=== PATIENT | female | born 1990 | race Caucasian/White ===

== ENCOUNTER 2018-10-21 20:09 | Inpatient (IN) | payer OTHER ==
[2018-10-21] MEDS ORDERED: Sodium Chloride 0.9% 10 ML Syringe FLUSH PRN (20:15)
[2018-10-21] MEDS ORDERED: Sodium Chloride 0.9% 10 ML SDV IV PRN (20:15)
[2018-10-21] MEDS ORDERED: Nalbuphine 10 MG/1 ML Vial IVPUSH PRN (20:15)
[2018-10-21] MEDS ORDERED: Oxytocin/0.9 % Sodium Chloride 30 UNIT/500 ML BAG IV SCH ×2 (20:15)
[2018-10-21] MEDS ORDERED: Butorphanol 1 MG/ML SDV IVPUSH PRN (20:15)
[2018-10-21] MEDS ORDERED: Carboprost Tromethamine 250 MCG/1 ML Amp IM PRN (20:15)
[2018-10-21] MEDS ORDERED: Misoprostol 25 MCG (1/4 of 100 MCG) Tab VAG PRN ×2 (20:15)
[2018-10-21] MEDS ORDERED: Lidocaine 1% 50 ML MDV INJECT PRN (20:15)
[2018-10-21] MEDS ORDERED: Terbutaline 1 MG/ML SDV SUBCUT PRN (20:15)
[2018-10-21] MEDS ORDERED: Water For Irrigation,Sterile 1,000 ML Container IRR PRN (20:15)
[2018-10-21] MEDS ORDERED: Methylergonovine 0.2 MG/1 ML Amp IM PRN (20:15)
[2018-10-21] MEDS ORDERED: Sodium Chloride 0.9% 2.5 ML Syringe FLUSH PRN (20:15)
[2018-10-21] MEDS ORDERED: Tranexamic Acid 1,000 MG in Sodium Chloride 0.9% 100 ML IV PRN (20:15)
[2018-10-21] MEDS ORDERED: Misoprostol 200 MCG Tab PO PRN (20:15)
[2018-10-22] MEDS: Lactated Ringers 1,000 ML IV SCH ×4 (08:25→18:40)
[2018-10-22] MEDS ORDERED: fentaNYL 100 MCG/2 ML SDV ONE (08:39)
[2018-10-22] MEDS ORDERED: Ropivacaine 0.2% 2 MG/ML 20 ML SDV ONE (08:41)
--- NOTE | 2018-10-22 09:09 | PCM.PREANE ---
Preanesthetic Assessment - Anesthesia/Transfusion/Family Hx Anesthesia History: Prior Anesthesia Without Reaction Family History of Anesthesia Reaction: No - Review of Systems General: No Symptoms Pulmonary: No Symptoms Cardiovascular: No Symptoms Gastrointestinal: Abdominal Pain Neurological: No Symptoms Other: Reports: None - Physical Assessment NPO Status Date: 10/21/18 Height: 5 ft 5 in Weight: 88.451 kg ASA Class: 2 Mental Status: Alert & Oriented x3 Airway Class: Mallampati = 2 Dentition: Reports: Normal Dentition Lungs: Clear to Auscultation, Normal Respiratory Effort Cardiovascular: Regular Rate, Regular Rhythm - Lab Values: Laboratory Last Values WBC 11.58 K/uL (4.0-11.0) H 10/21/18 20:38 RBC 4.68 M/uL (4.30-5.90) 10/21/18 20:38 Hgb 13.5 g/dL (12.0-16.0) 10/21/18 20:38 Hct 40.3 % (36.0-46.0) 10/21/18 20:38 MCV 86.1 fL (80.0-98.0) 10/21/18 20:38 MCH 28.8 pg (27.0-32.0) 10/21/18 20:38 MCHC 33.5 g/dL (31.0-37.0) 10/21/18 20:38 RDW Std Deviation 40.9 fl (28.0-62.0) 10/21/18 20:38 RDW Coeff of Travis 13 % (11.0-15.0) 10/21/18 20:38 Plt Count 192 K/uL (150-400) 10/21/18 20:38 MPV 9.00 fL (7.40-12.00) 10/21/18 20:38 Nucleated RBC % 0.0 /100WBC 10/21/18 20:38 Nucleated RBCs # 0 K/uL 10/21/18 20:38 Blood Type O POSITIVE 10/21/18 20:38 Antibody Screen NEGATIVE 10/21/18 20:38 - Allergies Allergies/Adverse Reactions: Allergies Allergy/AdvReac Type Severity Reaction Status Date / Time No Known Allergies Allergy Verified 10/21/18 20:19 - Blood Blood Available: Yes - Anesthesia Plan Pre-Op Medication Ordered: None - Acknowledgements Anesthesia Type Planned: Epidural Pt an Appropriate Candidate for the Planned Anesthesia: Yes Alternatives and Risks of Anesthesia Discussed w Pt/Guardian: Yes Pt/Guardian Understands and Agrees with Anesthesia Plan: Yes PreAnesthesia Questionnaire - Past Health History Medical/Surgical History: Denies Medical/Surgical History - SUBSTANCE USE Smoking Status *Q: Never Smoker Recreational Drug Use History: No - HOME MEDS Home Medications: Home Meds Vits #93/Iron Fum/FA [ Formula Tablet] 1 each PO DAILY [History] - CURRENT (IN HOUSE) MEDS Current Meds: Current Medications Butorphanol Tartrate (Stadol) 1 mg IVPUSH Q1H PRN PRN Reason: Pain Carboprost Tromethamine (Hemabate Ds) 250 mcg IM ASDIRECTED PRN PRN Reason: Post Hemorrhage Lactated Ringer's (Ringers, Lactated) 1,000 mls @ 150 mls/hr IV ASDIRECTED ABISAI Last Admin: 10/22/18 08:56 Dose: 999 mls/hr Oxytocin/Sodium Chloride (Oxytocin 30 Unit/500 Ml-Ns) 30 unit in 500 mls @ 999 mls/hr IV TITRATE ABISAI Oxytocin/Sodium Chloride (Oxytocin 30 Unit/500 Ml-Ns) 30 unit in 500 mls @ 2 mls/hr IV TITRATE ABISAI; Protocol Last Titration: 10/22/18 08:29 Dose: 6 munits/min, 6 mls/hr Tranexamic Acid 1,000 mg/ (Sodium Chloride) 110 mls @ 660 mls/hr IV ONETIME PRN PRN Reason: Bleeding Lidocaine HCl (Xylocaine 1%) 50 ml INJECT ONETIME PRN PRN Reason: Laceration repair Methylergonovine Maleate (Methergine) 0.2 mg IM ASDIRECTED PRN PRN Reason: Post Hemorrhage Misoprostol (Cytotec) 200 mcg PO ONETIME PRN PRN Reason: Post Hemorrhage Misoprostol (Cytotec) 25 mcg VAG ONETIME PRN PRN Reason: Cervical Ripening Last Admin: 10/21/18 21:31 Dose: 25 mcg Misoprostol (Cytotec) 25 mcg VAG Q4H PRN PRN Reason: Cervical Ripening Nalbuphine HCl (Nubain) 10 mg IVPUSH Q1H PRN PRN Reason: Pain (severe 7-10) Sodium Chloride (Saline Flush) 10 ml FLUSH ASDIRECTED PRN PRN Reason: Keep Vein Open Sodium Chloride (Saline Flush) 2.5 ml FLUSH ASDIRECTED PRN PRN Reason: Keep Vein Open Sodium Chloride (Normal Saline) 10 ml IV ASDIRECTED PRN PRN Reason: IV Use Sterile Water (Sterile Water For Irrigation) 1,000 ml IRR ASDIRECTED PRN PRN Reason: delivery Terbutaline Sulfate (Brethine) 0.25 mg SUBCUT ASDIRECTED PRN PRN Reason: Tacysystole Discontinued Medications Fentanyl (Sublimaze) Confirm Administered Dose 100 mcg .ROUTE .STK-MED ONE Stop: 10/22/18 08:40 Fentanyl/Bupivacaine HCl (Ogeyuiqb-Ujhyl-Mw 2 Mcg/Ml-0.125%) Confirm Administered Dose 100 mls @ as directed .ROUTE .STK-MED ONE Stop: 10/22/18 08:41 Ropivacaine (Naropin 0.2%) Confirm Administered Dose 20 ml .ROUTE .STK-MED ONE Stop: 10/22/18 08:42
[2018-10-22] MEDS ORDERED: Ondansetron 4 MG/2 ML SDV IVPUSH PRN ×2 (18:51→22:28)
[2018-10-22] MEDS ORDERED: Bupivacaine 0.5% 10 ML SDV ONE (20:41)
[2018-10-22] MEDS ORDERED: Ondansetron 4 MG/2 ML SDV ONE (20:54)
[2018-10-22] MEDS ORDERED: ceFAZolin 1 GM Vial ONE (20:54)
[2018-10-22] MEDS ORDERED: Sodium Chloride 0.9% 20 ML ONE (20:54)
[2018-10-22] MEDS ORDERED: Morphine PF 10 MG/10 ML SDV ONE (21:18)
[2018-10-22] MEDS ORDERED: Acetaminophen/oxyCODONE 325-5 MG Tab PO PRN ×3 (21:19→22:28)
[2018-10-22] MEDS ORDERED: Nalbuphine 10 MG/1 ML Vial IVPUSH PRN (21:19)
[2018-10-22] MEDS ORDERED: fentaNYL 100 MCG/2 ML SDV IVPUSH PRN (21:19)
--- NOTE | 2018-10-22 22:24 | PCM.POSTAN ---
POST ANESTHESIA ASSESSMENT - MENTAL STATUS Mental Status: Alert, Oriented - VITAL SIGNS Vital Signs: Last Vital Signs Temp 99.7 F 10/22/18 22:00 Pulse 107 H 10/22/18 22:20 Resp 22 H 10/22/18 22:20 BP 100/58 L 10/22/18 22:20 Pulse Ox 95 10/22/18 22:20 - RESPIRATORY Respiratory Status: Respiratory Rate WNL, Airway Patent, O2 Saturation Stable - CARDIOVASCULAR CV Status: Pulse Rate WNL, Blood Pressure Stable - GASTROINTESTINAL GI Status: No Symptoms - PAIN Pain Score: 1 - POST OP HYDRATION Hydration Status: Adequate & Stable
[2018-10-22] MEDS ORDERED: Lanolin 100% Cream 7 GM Tube TOP PRN (22:28)
[2018-10-22] MEDS ORDERED: Bisacodyl 10 MG Supp RECTAL PRN (22:28)
[2018-10-22] MEDS ORDERED: diphenhydrAMINE 50 MG/ML SDV IVPUSH PRN (22:28)
[2018-10-22] MEDS ORDERED: Lactated Ringers 1,000 ML IV SCH (22:30)
[2018-10-22] MEDS: Ketorolac 30 MG/ML SDV IVPUSH SCH (22:46)
--- NOTE | 2018-10-23 00:01 | PCM.OPNOTE ---
- General Post-Op/Procedure Note Condition: Good Free Text/Narrative:: Intake & Output 10/22/18 10/22/18 10/23/18 14:59 22:59 06:59 Intake Total 800 Output Total 450 Balance 350
--- NOTE | 2018-10-23 03:05 | OR ---
SURGEON: Da Calzada MD DATE OF PROCEDURE: 10/22/2018 INDICATIONS: A 28-year-old G1, P0 female admitted to Labor and Delivery for induction of labor at 40w6d. She had persistent category 2 heart rate tracing with late and variable decels and arrest of dilation at 5/70/-2. Discussed with the patient that she is unlikely to progress to vaginal delivery, and would be safest for mom and baby. Procedure was discussed with the patient including risks and complications which includes bleeding, infection, DVT, and injuries to surrounding organs such as bowel and bladder. The patient expressed understanding and is agreeable to procedure. Consent signed and questions answered. PROCEDURE PERFORMED: Primary low-transverse section. FINDINGS: Berry intrauterine at 41 weeks and 0 days in cephalic presentation , weight 6cxp6is. 6/7. Normal-appearing uterus, bilateral fallopian tubes and ovaries. PREOPERATIVE DIAGNOSES: 1. Berry intrauterine at 41 weeks and 0 days. 2. Failure to progress in labor. 3. Persistent category 2 heart rate tracing. POSTOPERATIVE DIAGNOSES: 1. Intrauterine at 41 weeks and 0 days. 2. Failure to progress in labor. 3. Persistent category 2 heart rate tracing. ANESTHESIA: Epidural. TABLE INSPECTOR: None. ANESTHESIOLOGIST: Dr. Anthony Vallejo ESTIMATED BLOOD LOSS: 800 mL. URINE OUTPUT: 300 mL PROCEDURE IN DETAIL: The patient was brought to the operating room. She received 2 g Ancef IV and pneumatic stockings. Epidural anesthesia was already in place and topped off. Sterling was already in place. The abdomen was prepped with chlorhexidine in sterile fashion. The patient was draped and tested for anesthesia which was adequate. Pfannenstiel incision was made with a scalpel and dissected down to fascia. Sites of bleeding were noted and cauterized. The fascia was cleared of subcutaneous tissue and incised in the midline with scalpel, then extended with Noel scissors. Hans clamps were placed on the superior fascial edge and rectus muscle dissected bluntly and with Noel scissors. Peritoneum was identified and entered bluntly, then extended bluntly. The Feng retractor was placed in the abdomen. The bladder was noted to be away from the site of incision and placed out of operative field. The uterus was incised using scalpel transversely at the lower uterine segment and extended bluntly. Clear amniotic fluid was noted. 's head was brought atraumatically to the hysterotomy with surgeon hand and fundal pressure applied. However, there was difficulty delivering the head. Decision was made to place the Kiwi vacuum. The vacuum was placed on the flexion point and negative pressure increased to 400-500mmHg. Traction was applied along with fundal pressure and head delivered atraumatically. Vacuum was removed. Shoulder and body were delivered without difficulty. Umbilical cord was clamped and cut. Baby was initially cyanotic and handed to awaiting nursery staff. Baby was crying and moving all extremities with stimulation after about 1min. Cord bloods were obtained. Placenta was delivered with gentle traction on the umbilical cord. Clean lap was used to remove any remaining membranes in the endometrial cavity. Uterus was exteriorized. Hysterotomy was examined and Allis clamps were placed at the angles of incision. The uterine incision was closed in single layer in running nonlocking fashion using 0 Vicryl. Additional qbarzn-ue-ahjbbc were placed at sites of bleeding on left side. The hysterotomy was examined and hemostasis was confirmed. The uterus was firm and placed back into the peritoneal cavity. Paracolic gutters were cleaned of any clots. The incision was again confirmed to be hemostatic. Peritoneum was grasped by Gisselle clamps, then closed with 2-0 Vicryl suture in running fashion. Rectus muscle was examined and found to be hemostatic. Fascia was closed in running fashion using 0 Vicryl suture. Subcutaneous tissue was irrigated and bleeding sites cauterized. Subcutaneous layer was brought together with 3-0 plain in running fashion. The skin was closed in subcuticular fashion using 3-0 Vicryl on a Ernie needle. ABD pressure dressing was placed over the incision. The patient was stable and transferred to recovery room. KRISSY VENCES /[id number] JUSTO
[2018-10-23] MEDS: Ketorolac 30 MG/ML SDV IVPUSH SCH ×4 (04:35→22:42)
[2018-10-23] MEDS: Docusate Sodium 100 MG Cap PO SCH ×2 (10:04→22:43)
--- NOTE | 2018-10-23 12:06 | PCM48HPAN ---
Post Anesthesia Note - EVALUATION WITHIN 48HRS OF ANESTHETIC Vital Signs in Normal Range: Yes Patient Participated in Evaluation: Yes Respiratory Function Stable: Yes Airway Patent: Yes Cardiovascular Function Stable: Yes Hydration Status Stable: Yes Pain Control Satisfactory: Yes Nausea and Vomiting Control Satisfactory: Yes Mental Status Recovered: Yes Vital Signs: Last Vital Signs Temp 97.7 F 10/23/18 07:30 Pulse 91 10/23/18 10:30 Resp 16 10/23/18 10:30 BP 104/59 L 10/23/18 07:30 Pulse Ox 98 10/23/18 10:30
--- NOTE | 2018-10-23 13:02 | PCM.PN ---
- General Info Date of Service: 10/23/18 Functional Status: Reports: Pain Controlled, Tolerating Diet, Ambulating - Review of Systems General: Reports: No Symptoms HEENT: Reports: No Symptoms Pulmonary: Reports: No Symptoms Cardiovascular: Reports: No Symptoms Gastrointestinal: Reports: No Symptoms Genitourinary: Reports: No Symptoms Musculoskeletal: Reports: No Symptoms Skin: Reports: No Symptoms Neurological: Reports: No Symptoms Psychiatric: Reports: No Symptoms - Patient Data Vitals - Most Recent: Last Vital Signs Temp 36.5 C 10/23/18 07:30 Pulse 91 10/23/18 10:30 Resp 16 10/23/18 10:30 BP 104/59 L 10/23/18 07:30 Pulse Ox 98 10/23/18 10:30 Weight - Most Recent: 195 lb I&O - Last 24 Hours: Intake & Output 10/22/18 10/23/18 10/23/18 22:59 06:59 14:59 Intake Total 800 400 Output Total 450 575 Balance 350 -175 Lab Results Last 24 Hours: Laboratory Results - last 24 hr 10/23/18 Range/Units 06:10 Hgb 11.1 L (12.0-16.0) g/dL Hct 33.4 L (36.0-46.0) % Med Orders - Current: Current Medications Bisacodyl (Dulcolax) 10 mg RECTAL ONETIME PRN PRN Reason: Constipation Butorphanol Tartrate (Stadol) 1 mg IVPUSH Q1H PRN PRN Reason: Pain Carboprost Tromethamine (Hemabate Ds) 250 mcg IM ASDIRECTED PRN PRN Reason: Post Hemorrhage Diphenhydramine HCl (Benadryl) 25 mg IVPUSH Q6H PRN PRN Reason: Itching or Nausea Docusate Sodium (Colace) 100 mg PO BID [facility] Last Admin: 10/23/18 10:04 Dose: 100 mg Emollient Ointment (Lansinoh Hpa) 0 gm TOP ASDIRECTED PRN PRN Reason: Sore Nipples Fentanyl (Sublimaze) 50 mcg IVPUSH Q5M PRN PRN Reason: Pain (severe 7-10) Stop: 10/23/18 21:20 Lactated Ringer's (Ringers, Lactated) 1,000 mls @ 150 mls/hr IV ASDIRECTED [facility] Last Admin: 10/22/18 18:40 Dose: 150 mls/hr Oxytocin/Sodium Chloride (Oxytocin 30 Unit/500 Ml-Ns) 30 unit in 500 mls @ 999 mls/hr IV TITRATE ABISAI Oxytocin/Sodium Chloride (Oxytocin 30 Unit/500 Ml-Ns) 30 unit in 500 mls @ 2 mls/hr IV TITRATE ABISAI; Protocol Last Titration: 10/22/18 18:15 Dose: 0 munits/min, 0 mls/hr Tranexamic Acid 1,000 mg/ (Sodium Chloride) 110 mls @ 660 mls/hr IV ONETIME PRN PRN Reason: Bleeding Lactated Ringer's (Ringers, Lactated) 1,000 mls @ 125 mls/hr IV ASDIRECTED [facility] Last Admin: 10/23/18 00:58 Dose: 125 mls/hr Ibuprofen (Motrin) 800 mg PO Q8H PRN PRN Reason: mild pain or fever Ketorolac Tromethamine (Toradol) 30 mg IVPUSH Q6H [facility] Stop: 10/23/18 22:31 Last Admin: 10/23/18 10:05 Dose: 30 mg Lidocaine HCl (Xylocaine 1%) 50 ml INJECT ONETIME PRN PRN Reason: Laceration repair Methylergonovine Maleate (Methergine) 0.2 mg IM ASDIRECTED PRN PRN Reason: Post Hemorrhage Misoprostol (Cytotec) 200 mcg PO ONETIME PRN PRN Reason: Post Hemorrhage Misoprostol (Cytotec) 25 mcg VAG ONETIME PRN PRN Reason: Cervical Ripening Last Admin: 10/21/18 21:31 Dose: 25 mcg Misoprostol (Cytotec) 25 mcg VAG Q4H PRN PRN Reason: Cervical Ripening Nalbuphine HCl (Nubain) 10 mg IVPUSH Q1H PRN PRN Reason: Pain (severe 7-10) Nalbuphine HCl (Nubain) 2.5 mg IVPUSH Q3H PRN PRN Reason: Pruritis Stop: 10/23/18 21:20 Ondansetron HCl (Zofran) 4 mg IVPUSH Q6H PRN PRN Reason: Nausea/Vomiting Last Admin: 10/22/18 19:15 Dose: 4 mg Ondansetron HCl (Zofran) 4 mg IVPUSH Q4H PRN PRN Reason: Nausea/Vomiting Oxycodone/Acetaminophen (Percocet 325-5 Mg) 1 tab PO ONETIME PRN PRN Reason: Pain (moderate 4-6) Oxycodone/Acetaminophen (Percocet 325-5 Mg) 1 tab PO Q4H PRN PRN Reason: Pain (moderate 4-6) Oxycodone/Acetaminophen (Percocet 325-5 Mg) 2 tab PO Q4H PRN PRN Reason: Pain (moderate 4-6) Sodium Chloride (Saline Flush) 10 ml FLUSH ASDIRECTED PRN PRN Reason: Keep Vein Open Sodium Chloride (Saline Flush) 2.5 ml FLUSH ASDIRECTED PRN PRN Reason: Keep Vein Open Sodium Chloride (Normal Saline) 10 ml IV ASDIRECTED PRN PRN Reason: IV Use Sterile Water (Sterile Water For Irrigation) 1,000 ml IRR ASDIRECTED PRN PRN Reason: delivery Terbutaline Sulfate (Brethine) 0.25 mg SUBCUT ASDIRECTED PRN PRN Reason: Tacysystole Discontinued Medications Bupivacaine HCl (Sensorcaine-Mpf 0.5%) Confirm Administered Dose 20 ml .ROUTE .STK-MED ONE Stop: 10/22/18 20:42 Last Admin: 10/22/18 23:07 Dose: Not Given Cefazolin Sodium (Ancef) Confirm Administered Dose 2 gm .ROUTE .STK-MED ONE Stop: 10/22/18 20:55 Fentanyl (Sublimaze) Confirm Administered Dose 100 mcg .ROUTE .STK-MED ONE Stop: 10/22/18 08:40 Last Admin: 10/22/18 23:01 Dose: Not Given Fentanyl/Bupivacaine HCl (Letboemx-Sxgne-Cq 2 Mcg/Ml-0.125%) Confirm Administered Dose 100 mls @ as directed .ROUTE .STK-MED ONE Stop: 10/22/18 08:41 Last Admin: 10/22/18 23:01 Dose: Not Given Fentanyl/Bupivacaine HCl (Ibdsbtdf-Xqkwi-Pj 2 Mcg/Ml-0.125%) Confirm Administered Dose 100 mls @ as directed .ROUTE .STK-MED ONE Stop: 10/22/18 18:45 Last Admin: 10/22/18 23:01 Dose: Not Given Sodium Chloride (Normal Saline) Confirm Administered Dose 20 mls @ as directed .ROUTE .STK-MED ONE Stop: 10/22/18 20:55 Morphine Sulfate (Duramorph Pf) Confirm Administered Dose 10 mg .ROUTE .STK-MED ONE Stop: 10/22/18 21:19 Ondansetron HCl (Zofran) Confirm Administered Dose 4 mg .ROUTE .STK-MED ONE Stop: 10/22/18 20:55 Ropivacaine (Naropin 0.2%) Confirm Administered Dose 20 ml .ROUTE .STK-MED ONE Stop: 10/22/18 08:42 Last Admin: 10/22/18 23:01 Dose: Not Given - Exam General: Alert, Oriented, No Acute Distress Lungs: Normal Respiratory Effort GI/Abdominal Exam: Normal Bowel Sounds, Soft, Non-Tender, No Distention, Other ( Appropriate tender. Dressing removed, incision c/d/i) (Female) Exam: Vaginal Bleeding (light), Other (Fundus firm at the umbilicus. Macdonald in place with clear urine) Extremities: Non-Tender, Pedal Edema (minimal) Neurological: No New Focal Deficit Psy/Mental Status: Alert, Normal Affect, Normal Mood - Problem List Review Problem List Initiated/Reviewed/Updated: Yes - My Orders Last 24 Hours: My Active Orders 10/22/18 21:10 Patient Status [ADT] Routine 10/22/18 22:28 Ambulate [RC] PER UNIT ROUTINE Communication Order [RC] PER UNIT ROUTINE Communication Order [RC] PER UNIT ROUTINE Communication Order [RC] Per Unit Routine Intake and Output [RC] Q4H May Shower [RC] ASDIRECTED RT Incentive Spirometry [RC] Q2HWA Vital Signs [RC] PER UNIT ROUTINE Acetaminophen/oxyCODONE [Percocet 325-5 MG] 1 tab PO Q4H PRN Acetaminophen/oxyCODONE [Percocet 325-5 MG] 2 tab PO Q4H PRN Bisacodyl [Dulcolax] 10 mg RECTAL ONETIME PRN Lanolin [Lansinoh HPA] See Dose Instructions TOP ASDIRECTED PRN Ondansetron [Zofran] 4 mg IVPUSH Q4H PRN diphenhydrAMINE [Benadryl] 25 mg IVPUSH Q6H PRN Abdominal Binder [OM.PC] Routine Assess Lochia [WOMSER] Per Unit Routine Assess Uterine Involution [WOMSER] Per Unit Routine Breast Pump [WOMSER] Per Unit Routine Peripheral IV Discontinue [OM.PC] Routine Sequential Compression Device [OM.PC] Per Unit Routine 10/22/18 22:29 Antiembolic Devices [RC] PER UNIT ROUTINE 10/22/18 22:30 Ketorolac [Toradol] 30 mg IVPUSH Q6H Lactated Ringers [Ringers, Lactated] 1,000 ml IV ASDIRECTED 10/23/18 09:00 Docusate Sodium [Colace] 100 mg PO BID 10/23/18 Breakfast Regular Diet [DIET] 10/24/18 04:30 Ibuprofen [Motrin] 800 mg PO Q8H PRN - Assessment Assessment:: 28yo POD1 s/p LTCS for arrest of dilation and NRFHR, stable and recovering well. - Plan Plan:: Incision healing well. Bleeding light. UO adequate, remove macdonald Continue toradol, oxycodone, motrin PRN for pain Baby on O2, will likely wane off today Continue inpatient, discharge POD2 when meeting all milestones
[2018-10-24] MEDS ORDERED: [UNRECOGNIZED DRUG - OTHER] SUBCUT ONE ×2 (03:28→14:28)
[2018-10-24] MEDS: Ibuprofen 800 MG Tab PO PRN ×2 (04:30→13:05)
--- NOTE | 2018-10-24 06:38 | PCM.PNPP ---
- General Info Date of Service: 10/24/18 Admission Dx/Problem (Free Text): Subjective Update: Pt feeling well. Pain controlled. Ambulating and voiding. Tolerating PO. Has not passed flatus. Lochia minimal. - Review of Systems General: Reports: No Symptoms HEENT: Reports: No Symptoms Pulmonary: Reports: No Symptoms Cardiovascular: Reports: No Symptoms Gastrointestinal: Reports: No Symptoms Genitourinary: Reports: No Symptoms Musculoskeletal: Reports: No Symptoms Neurological: Reports: No Symptoms Psychiatric: Reports: No Symptoms - Patient Data Vital Signs - Most Recent: Last Vital Signs Temp 36.9 C 10/24/18 04:00 Pulse 84 10/24/18 04:00 Resp 16 10/24/18 04:00 BP 113/67 10/24/18 04:00 Pulse Ox 96 10/24/18 04:00 Weight - Most Recent: 195 lb I&O - Last 24 Hours: Intake & Output 10/23/18 10/23/18 10/24/18 14:59 22:59 06:59 Output Total 600 900 Balance -600 -900 Med Orders - Current: Current Medications Bisacodyl (Dulcolax) 10 mg RECTAL ONETIME PRN PRN Reason: Constipation Butorphanol Tartrate (Stadol) 1 mg IVPUSH Q1H PRN PRN Reason: Pain Carboprost Tromethamine (Hemabate Ds) 250 mcg IM ASDIRECTED PRN PRN Reason: Post Hemorrhage Diphenhydramine HCl (Benadryl) 25 mg IVPUSH Q6H PRN PRN Reason: Itching or Nausea Docusate Sodium (Colace) 100 mg PO BID [facility] Last Admin: 10/23/18 22:43 Dose: 100 mg Emollient Ointment (Lansinoh Hpa) 0 gm TOP ASDIRECTED PRN PRN Reason: Sore Nipples Lactated Ringer's (Ringers, Lactated) 1,000 mls @ 150 mls/hr IV ASDIRECTED [facility] Last Admin: 10/22/18 18:40 Dose: 150 mls/hr Oxytocin/Sodium Chloride (Oxytocin 30 Unit/500 Ml-Ns) 30 unit in 500 mls @ 999 mls/hr IV TITRATE ABISAI Oxytocin/Sodium Chloride (Oxytocin 30 Unit/500 Ml-Ns) 30 unit in 500 mls @ 2 mls/hr IV TITRATE ABISAI; Protocol Last Titration: 10/22/18 18:15 Dose: 0 munits/min, 0 mls/hr Tranexamic Acid 1,000 mg/ (Sodium Chloride) 110 mls @ 660 mls/hr IV ONETIME PRN PRN Reason: Bleeding Lactated Ringer's (Ringers, Lactated) 1,000 mls @ 125 mls/hr IV ASDIRECTED [facility] Last Admin: 10/23/18 00:58 Dose: 125 mls/hr Ibuprofen (Motrin) 800 mg PO Q8H PRN PRN Reason: mild pain or fever Last Admin: 10/24/18 04:30 Dose: 800 mg Lidocaine HCl (Xylocaine 1%) 50 ml INJECT ONETIME PRN PRN Reason: Laceration repair Methylergonovine Maleate (Methergine) 0.2 mg IM ASDIRECTED PRN PRN Reason: Post Hemorrhage Misoprostol (Cytotec) 200 mcg PO ONETIME PRN PRN Reason: Post Hemorrhage Misoprostol (Cytotec) 25 mcg VAG ONETIME PRN PRN Reason: Cervical Ripening Last Admin: 10/21/18 21:31 Dose: 25 mcg Misoprostol (Cytotec) 25 mcg VAG Q4H PRN PRN Reason: Cervical Ripening Nalbuphine HCl (Nubain) 10 mg IVPUSH Q1H PRN PRN Reason: Pain (severe 7-10) Ondansetron HCl (Zofran) 4 mg IVPUSH Q6H PRN PRN Reason: Nausea/Vomiting Last Admin: 10/22/18 19:15 Dose: 4 mg Ondansetron HCl (Zofran) 4 mg IVPUSH Q4H PRN PRN Reason: Nausea/Vomiting Oxycodone/Acetaminophen (Percocet 325-5 Mg) 1 tab PO ONETIME PRN PRN Reason: Pain (moderate 4-6) Last Admin: 10/24/18 05:51 Dose: 1 tab Oxycodone/Acetaminophen (Percocet 325-5 Mg) 1 tab PO Q4H PRN PRN Reason: Pain (moderate 4-6) Oxycodone/Acetaminophen (Percocet 325-5 Mg) 2 tab PO Q4H PRN PRN Reason: Pain (moderate 4-6) Sodium Chloride (Saline Flush) 10 ml FLUSH ASDIRECTED PRN PRN Reason: Keep Vein Open Sodium Chloride (Saline Flush) 2.5 ml FLUSH ASDIRECTED PRN PRN Reason: Keep Vein Open Sodium Chloride (Normal Saline) 10 ml IV ASDIRECTED PRN PRN Reason: IV Use Sterile Water (Sterile Water For Irrigation) 1,000 ml IRR ASDIRECTED PRN PRN Reason: delivery Terbutaline Sulfate (Brethine) 0.25 mg SUBCUT ASDIRECTED PRN PRN Reason: Tacysystole Discontinued Medications Bupivacaine HCl (Sensorcaine-Mpf 0.5%) Confirm Administered Dose 20 ml .ROUTE .STK-MED ONE Stop: 10/22/18 20:42 Last Admin: 10/22/18 23:07 Dose: Not Given Cefazolin Sodium (Ancef) Confirm Administered Dose 2 gm .ROUTE .STK-MED ONE Stop: 10/22/18 20:55 Fentanyl (Sublimaze) Confirm Administered Dose 100 mcg .ROUTE .STK-MED ONE Stop: 10/22/18 08:40 Last Admin: 10/22/18 23:01 Dose: Not Given Fentanyl (Sublimaze) 50 mcg IVPUSH Q5M PRN PRN Reason: Pain (severe 7-10) Stop: 10/23/18 21:20 Fentanyl/Bupivacaine HCl (Szdvpzqk-Wctcu-Gf 2 Mcg/Ml-0.125%) Confirm Administered Dose 100 mls @ as directed .ROUTE .STK-MED ONE Stop: 10/22/18 08:41 Last Admin: 10/22/18 23:01 Dose: Not Given Fentanyl/Bupivacaine HCl (Gskkxmmh-Pwgny-Vw 2 Mcg/Ml-0.125%) Confirm Administered Dose 100 mls @ as directed .ROUTE .STK-MED ONE Stop: 10/22/18 18:45 Last Admin: 10/22/18 23:01 Dose: Not Given Sodium Chloride (Normal Saline) Confirm Administered Dose 20 mls @ as directed .ROUTE .STK-MED ONE Stop: 10/22/18 20:55 Ketorolac Tromethamine (Toradol) 30 mg IVPUSH Q6H [facility] Stop: 10/23/18 22:31 Last Admin: 10/23/18 22:42 Dose: 30 mg Measles/Mumps/Rubella Vaccine Live (Proquad Vial) 1 each SUBCUT .ONCE ONE Stop: 10/24/18 03:29 Morphine Sulfate (Duramorph Pf) Confirm Administered Dose 10 mg .ROUTE .STK-MED ONE Stop: 10/22/18 21:19 Nalbuphine HCl (Nubain) 2.5 mg IVPUSH Q3H PRN PRN Reason: Pruritis Stop: 10/23/18 21:20 Ondansetron HCl (Zofran) Confirm Administered Dose 4 mg .ROUTE .STK-MED ONE Stop: 10/22/18 20:55 Ropivacaine (Naropin 0.2%) Confirm Administered Dose 20 ml .ROUTE .STK-MED ONE Stop: 10/22/18 08:42 Last Admin: 10/22/18 23:01 Dose: Not Given - Infant Interaction Infant Disposition, : at Bedside Interaction: Holding Feeding: Breastfed ; Nursed Well Support Person: - Recovery Exam Fundal Tone: Firm Fundal Level: At Umbilicus Fundal Placement: Midline Lochia Amount: Scant Lochia Color: Rubra/Red Bladder Status: Voiding Urinary Elimination: Voided - Exam General: Alert, Oriented, No Acute Distress HEENT: Pupils Equal, Pupils Reactive Lungs: Normal Respiratory Effort GI/Abdominal Exam: Normal Bowel Sounds, Soft, No Distention, Other ( Appropriately tender. Incision c/d/i) Extremities: Normal Inspection, Non-Tender, No Pedal Edema Skin: Warm Psy/Mental Status: Alert, Normal Affect, Normal Mood - Problem List & Annotations (1) delivery delivered SNOMED Code(s): 221412654 Code(s): O82 - ENCOUNTER FOR DELIVERY WITHOUT INDICATION Status: Acute Current Visit: Yes - Problem List Review Problem List Initiated/Reviewed/Updated: Yes - My Orders Last 24 Hours: My Active Orders 10/23/18 09:00 Docusate Sodium [Colace] 100 mg PO BID 10/23/18 Breakfast Regular Diet [DIET] 10/24/18 04:30 Ibuprofen [Motrin] 800 mg PO Q8H PRN - Assessment Assessment:: 28yo POD2 s/p LTCS for arrest of dilation and NRFHR, stable and recovering well. - Plan Plan:: Incision healing well. Bleeding light. Voiding spontaneously Continue toradol, oxycodone, motrin PRN for pain Baby doing well, Plan for discharge home today, follow up in 2wk for incision check
[2018-10-24] MEDS: Docusate Sodium 100 MG Cap PO SCH (09:03)
[2018-10-24] MEDS ORDERED: Measles, Mumps & Rubella Vaccine 0.5 ML SDV SUBCUT ONE (13:45)
== END 2018-10-24 14:38 | disposition home or self-care (01) | DRG 788 ==
LOC: MW.OBCHECK 20:09 → MW.OB 20:10 → OBSVTOIN 10-23 00:30 → MW.OB 10-23 03:57
PROVIDERS: ADMIT Obstetrics & Gynecology; ATTEND Obstetrics & Gynecology
PROC: 10D00Z1 Extraction of Products of Conception, Low, Open Approach (ICD-10-PCS; principal; 2018-10-22)
DX: O48.0 Post-term pregnancy (principal); O76 Abnormality in fetal heart rate and rhythm complicating labor and delivery; O62.0 Primary inadequate contractions; Z37.0 Single live birth; Z3A.40 40 weeks gestation of pregnancy
CPT/HCPCS: 36415; 59025; 85014; 85018; 85027; 86850; 86900; 86901; 90707; A9270-GY; J0690; J1885; J2270; J2405; J2590; J2795; J3010; J3490; J7120

== ENCOUNTER 2020-07-16 10:20 | Inpatient (IN) | payer OTHER ==
[2020-07-16] MEDS ORDERED: Ondansetron 4 MG/2 ML SDV ONE (10:24)
[2020-07-16] MEDS ORDERED: Ketorolac 30 MG/ML SDV ONE (10:24)
[2020-07-16] MEDS ORDERED: Oxytocin 10 Units/1 ML SDV ONE (10:24)
[2020-07-16] MEDS ORDERED: Phenylephrine 1% 10 MG/ML SDV ONE (10:24)
[2020-07-16] MEDS ORDERED: ceFAZolin 1 GM Vial ONE (10:25)
[2020-07-16] MEDS ORDERED: Sodium Chloride 0.9% 20 ML ONE (10:25)
[2020-07-16] MEDS ORDERED: Morphine PF 10 MG/10 ML SDV ONE (10:26)
[2020-07-16] MEDS ORDERED: Sodium Chloride 0.9% 2.5 ML Syringe FLUSH PRN (10:39)
[2020-07-16] MEDS ORDERED: Citric Acid/Sodium Citrate Solution 30 ML Cup PO ONE (10:39)
[2020-07-16] MEDS ORDERED: Sodium Chloride 0.9% 10 ML SDV IV PRN (10:39)
[2020-07-16] MEDS ORDERED: Sodium Chloride 0.9% 10 ML Syringe FLUSH PRN (10:39)
[2020-07-16] MEDS ORDERED: Lactated Ringers 1,000 ML IV SCH ×2 (10:45→13:15)
[2020-07-16] MEDS ORDERED: Oxytocin/0.9 % Sodium Chloride 30 UNIT/500 ML BAG IV SCH (10:45)
[2020-07-16] MEDS ORDERED: Nalbuphine 10 MG/1 ML Vial IVPUSH PRN (11:01)
--- NOTE | 2020-07-16 11:03 | PCM.PREANE ---
Preanesthetic Assessment - Anesthesia/Transfusion/Family Hx Anesthesia History: Prior Anesthesia Without Reaction Family History of Anesthesia Reaction: No - Review of Systems General: No Symptoms Pulmonary: No Symptoms Cardiovascular: No Symptoms Gastrointestinal: No Symptoms Neurological: No Symptoms Other: Reports: None - Physical Assessment NPO Status Date: 07/16/20 NPO Status Time: 00:05 Height: 1.65 m Weight: 95.254 kg ASA Class: 2 - Allergies Allergies/Adverse Reactions: Allergies Allergy/AdvReac Type Severity Reaction Status Date / Time No Known Allergies Allergy Verified 07/10/20 09:57 - Acknowledgements Anesthesia Type Planned: Spinal Pt an Appropriate Candidate for the Planned Anesthesia: Yes Alternatives and Risks of Anesthesia Discussed w Pt/Guardian: Yes Pt/Guardian Understands and Agrees with Anesthesia Plan: Yes PreAnesthesia Questionnaire - Past Health History Medical/Surgical History: Denies Medical/Surgical History - HOME MEDS Home Medications: Home Meds Vits #93/Iron Fum/FA [ Formula Tablet] 1 each PO BEDTIME 10/21/18 [History] Cholecalciferol (Vitamin D3) [Vitamin D3] 2,000 unit PO BEDTIME 07/10/20 [History] Escitalopram Oxalate 20 mg PO BEDTIME 07/10/20 [History] - CURRENT (IN HOUSE) MEDS Current Meds: Current Medications Lactated Ringer's (Ringers, Lactated) 1,000 mls @ 500 mls/hr IV BOLUS ABISAI Oxytocin/Sodium Chloride (Oxytocin 30 Unit/500 Ml-Ns) 30 unit in 500 mls @ 250 mls/hr IV TITRATE ABISAI Sodium Chloride (Sodium Chloride 0.9% 10 Ml Syringe) 10 ml FLUSH ASDIRECTED PRN PRN Reason: Keep Vein Open Sodium Chloride (Sodium Chloride 0.9% 2.5 Ml Syringe) 2.5 ml FLUSH ASDIRECTED PRN PRN Reason: Keep Vein Open Sodium Chloride (Sodium Chloride 0.9% 10 Ml Sdv) 10 ml IV ASDIRECTED PRN PRN Reason: IV Use Discontinued Medications Cefazolin Sodium (Cefazolin 1 Gm Vial) Confirm Administered Dose 2 gm .ROUTE .STK-MED ONE Stop: 07/16/20 10:26 Citric Acid/Sodium Citrate (Citric Acid/Sodium Citrate Solution 30 Ml Cup) 30 ml PO ONETIME ONE Stop: 07/16/20 10:40 Sodium Chloride (Normal Saline) Confirm Administered Dose 20 mls @ as directed .ROUTE .STK-MED ONE Stop: 07/16/20 10:26 Ketorolac Tromethamine (Ketorolac 30 Mg/Ml Sdv) Confirm Administered Dose 30 mg .ROUTE .STK-MED ONE Stop: 07/16/20 10:25 Morphine Sulfate (Morphine Pf 10 Mg/10 Ml Sdv) Confirm Administered Dose 10 mg .ROUTE .STK-MED ONE Stop: 07/16/20 10:27 Ondansetron HCl (Ondansetron 4 Mg/2 Ml Sdv) Confirm Administered Dose 4 mg .ROUTE .STK-MED ONE Stop: 07/16/20 10:25 Oxytocin (Oxytocin 10 Units/1 Ml Sdv) Confirm Administered Dose 20 unit .ROUTE .STK-MED ONE Stop: 07/16/20 10:25 Phenylephrine HCl (Phenylephrine 1% 10 Mg/Ml Sdv) Confirm Administered Dose 10 mg .ROUTE .[employer]MED ONE Stop: 07/16/20 10:25
[2020-07-16] MEDS ORDERED: Octyl 2-Cyanoacrylate 1 Tube ONE (12:39)
--- NOTE | 2020-07-16 13:13 | PCM.OPNOTE ---
- General Post-Op/Procedure Note Date of Surgery/Procedure: 07/16/20 Operative Procedure(s): repeat low transverse Findings: Liveborn female 7/9 weight 3500 grams, double nuchal cord, normal pelvis Pre Op Diagnosis: 39 weeks, previous declines vaginal trial of labor. Post-Op Diagnosis: Same Anesthesia Technique: Spinal Primary Surgeon: Una Reyes Anesthesia Provider: Jose Tom Pathology: none Fluid Replacement, Intraop: 2,400 EBL in mLs: 300 Complications: None Known Condition: Good
[2020-07-16] MEDS ORDERED: Tranexamic Acid 1,000 MG in Sodium Chloride 0.9% 100 ML IV PRN (13:14)
[2020-07-16] MEDS ORDERED: Oxytocin 10 Units/1 ML SDV IM PRN (13:14)
[2020-07-16] MEDS ORDERED: Methylergonovine 0.2 MG/1 ML Amp IM PRN (13:14)
[2020-07-16] MEDS ORDERED: Ondansetron 4 MG/2 ML SDV IVPUSH PRN (13:14)
[2020-07-16] MEDS ORDERED: Acetaminophen/oxyCODONE 325-5 MG Tab PO PRN ×2 (13:14)
[2020-07-16] MEDS ORDERED: diphenhydrAMINE 50 MG/ML SDV IVPUSH PRN (13:14)
[2020-07-16] MEDS ORDERED: Misoprostol 200 MCG Tab RECTAL PRN (13:14)
[2020-07-16] MEDS ORDERED: Lanolin 100% Cream 7 GM Tube TOP PRN (13:14)
[2020-07-16] MEDS ORDERED: Bisacodyl 10 MG Supp RECTAL PRN (13:14)
[2020-07-16] MEDS ORDERED: Oxytocin/Lactated Ringers 30 UNIT/500 ML BAG IV SCH (13:15)
--- NOTE | 2020-07-16 13:35 | PCM.POSTAN ---
POST ANESTHESIA ASSESSMENT - MENTAL STATUS Mental Status: Alert - RESPIRATORY Respiratory Status: Respiratory Rate WNL - CARDIOVASCULAR CV Status: Pulse Rate WNL - GASTROINTESTINAL GI Status: No Symptoms - POST OP HYDRATION Hydration Status: Adequate & Stable
[2020-07-16] MEDS: Ketorolac 30 MG/ML SDV IVPUSH SCH ×2 (17:39→18:52)
--- NOTE | 2020-07-16 19:32 | OR ---
SURGEON: Una Reyes M.D. DATE OF PROCEDURE: 07/16/2020 PREOPERATIVE DIAGNOSES: A 39-week intrauterine , prior delivery, desires repeat section. POSTOPERATIVE DIAGNOSES: A 39-week intrauterine , prior delivery, desires repeat section. PROCEDURE: Repeat low-transverse section. PRIMARY SURGEON: Una Reyes M.D. ANESTHESIA: Spinal. ESTIMATED BLOOD LOSS: 300 mL. FLUIDS: 2400 mL crystalloid. FINDINGS: Liveborn female, scores 7 and 9. Weight 3500 g. Normal-appearing uterus, tubes, and ovaries. COMPLICATIONS: None known. DISPOSITION: Stable to Recovery. BRIEF HISTORY: This is a 30-year-old female. She is G2, P 1-0-0-1. She presents at 39 weeks' gestation for a repeat delivery with risks discussed including bleeding; infection; injury to bowel, bladder, blood vessels, ureters, or other organs; risk of thromboembolic event; and risk of anesthesia. Understanding all these risks, she does desire to proceed. DESCRIPTION OF PROCEDURE: With the patient in the left tilt position, under adequate spinal analgesia, the abdomen was prepped with chlorhexidine and draped in the usual fashion for abdominal surgery. SCDs were in place. Sterling catheter had been placed. An appropriate time-out was held. She had received 2 g of Ancef IV. After documentation of adequate analgesia, the prior cicatrix was excised and the incision was carried through the subcutaneous tissue to the fascia, which was scored transversely in the midline. The fascial incision was extended laterally using curved Noel scissors. There were dense adhesions between the fascia and the muscle, and these were incised using curved Noel scissors. A finger was used to enter the peritoneal cavity. There were no adhesions between the peritoneum and the internal organs, and therefore this incision was extended cephalad and caudad using sharp and blunt dissection. However, in stretching this area, it was noted that it was quite restricted, and therefore, the fascial incision was extended further laterally and also the dissection was extended further cephalad. With this, I felt that there was enough room to deliver and the Feng O retractor was placed. The visceral peritoneum over the lower uterine segment was incised and pushed downward to develop an adequate bladder flap. A transverse curvilinear incision was made over the lower uterine segment with a scalpel. A finger was used to enter the peritoneal cavity. Clear fluid was noted. The head was in a cephalic presentation, however, very high, as the baby had recently been breech. The head was delivered via the uterine incision. There was restriction related to the scarred fascia, and therefore, after obtaining permission from the mother, a vacuum was placed, and with one pull and no pop offs, the head was delivered with fundal pressure. There was a double nuchal cord that was reduced, and there was subsequent delivery of the infant's shoulders and body without difficulty. The was bulb suctioned by nose and mouth, and after 1 minute, the cord was doubly clamped and cut. The was handed to the nurse in attendance at delivery. The infant is a liveborn female, scores 7 and 9, weighing 3500 g. Cord blood was collected for cord ABGs as well as routine cord blood sampling. Pitocin was initiated after delivery of the to assist with delivery of the placenta, which was delivered by manual extraction. The uterus was cleaned with a wet laparotomy tape. The cervix was opened with a ring forceps. The uterine incision was closed with a running lock suture of 0 Polysorb followed by an imbricating layer of 0 Polysorb. Two additional figure- of-eight sutures were placed in the midline, and a [id number] suture was placed laterally for hemostasis. The tubes and ovaries were inspected and appeared normal. The paracolic gutters were cleaned with a wet laparotomy tape. The uterus was carefully inspected and remained hemostatic. Therefore, the Feng O retractor was removed. After removal of the retractor, a bladder blade was placed and a final inspection confirmed hemostasis. Therefore, all the instruments were removed, and the rectus muscle and peritoneum were loosely approximated in the midline using a running mattress suture of 0 Polysorb. The posterior aspect of the fascia was inspected. There were no areas of bleeding, and therefore, the fascial incision was closed with a running suture of 0 Polysorb. Subcutaneous tissue was copiously irrigated and careful hemostasis was obtained. This being completed, the skin was closed with a subcuticular suture of 4-0 Monocryl followed by Dermabond. Final sponge, needle, and instrument counts were reported as correct. There were no known complications. The patient was transferred to Recovery in good condition. SUSAN VENCES /[id number]
[2020-07-16] MEDS: Docusate Sodium 100 MG Cap PO SCH (21:07)
[2020-07-17] MEDS: Ketorolac 30 MG/ML SDV IVPUSH SCH ×3 (01:12→14:34)
--- NOTE | 2020-07-17 06:51 | PCM48HPAN ---
Post Anesthesia Note - EVALUATION WITHIN 48HRS OF ANESTHETIC Vital Signs in Normal Range: Yes Patient Participated in Evaluation: Yes Respiratory Function Stable: Yes Airway Patent: Yes Cardiovascular Function Stable: Yes Hydration Status Stable: Yes Pain Control Satisfactory: Yes Nausea and Vomiting Control Satisfactory: Yes Mental Status Recovered: Yes Vital Signs: Last Vital Signs Temp 35.8 C L 07/17/20 04:00 Pulse 91 07/17/20 06:13 Resp 17 07/17/20 06:13 BP 108/60 07/17/20 04:00 Pulse Ox 98 07/17/20 06:13
[2020-07-17] MEDS: Docusate Sodium 100 MG Cap PO SCH ×2 (08:11→21:19)
--- NOTE | 2020-07-17 08:45 | PCM.PNPP ---
- General Info Date of Service: 07/17/20 Functional Status: Reports: Pain Controlled, Tolerating Diet, Ambulating, Urinating - Review of Systems General: Reports: No Symptoms HEENT: Reports: No Symptoms Pulmonary: Reports: No Symptoms Cardiovascular: Reports: No Symptoms Gastrointestinal: Reports: No Symptoms Genitourinary: Reports: No Symptoms Musculoskeletal: Reports: No Symptoms Skin: Reports: No Symptoms Neurological: Reports: No Symptoms Psychiatric: Reports: No Symptoms - Patient Data Vital Signs - Most Recent: Last Vital Signs Temp 36.7 C 07/17/20 07:26 Pulse 91 07/17/20 07:26 Resp 16 07/17/20 07:26 BP 95/55 L 07/17/20 07:26 Pulse Ox 96 07/17/20 07:26 Weight - Most Recent: 95.254 kg I&O - Last 24 Hours: Intake & Output 07/16/20 07/17/20 07/17/20 22:59 06:59 14:59 Output Total 250 1850 Balance -250 -1850 Lab Results - Last 24 Hours: Laboratory Results - last 24 hr 07/16/20 07/16/20 07/16/20 Range/Units 10:35 10:35 12:27 WBC 9.52 (4.0-11.0) K/uL RBC 4.58 (4.30-5.90) M/uL Hgb 13.0 (12.0-16.0) g/dL Hct 39.6 (36.0-46.0) % MCV 86.5 (80.0-98.0) fL MCH 28.4 (27.0-32.0) pg MCHC 32.8 (31.0-37.0) g/dL RDW Std Deviation 43.4 (28.0-62.0) fl RDW Coeff of Travis 14 (11.0-15.0) % Plt Count 214 (150-400) K/uL MPV 9.20 (7.40-12.00) fL Nucleated RBC % 0.0 /100WBC Nucleated RBCs # 0 K/uL Cord ABG pH 7.228 (7.18-7.38) Cord ABG Base Excess -3 (-10--2) Cord VBG pH 7.324 (7.25-7.45) Cord VBG Base Excess -3 (-10--2) Blood Type O POSITIVE Antibody Screen NEGATIVE 07/17/20 Range/Units 06:36 WBC (4.0-11.0) K/uL RBC (4.30-5.90) M/uL Hgb 11.6 L (12.0-16.0) g/dL Hct 35.4 L (36.0-46.0) % MCV (80.0-98.0) fL MCH (27.0-32.0) pg MCHC (31.0-37.0) g/dL RDW Std Deviation (28.0-62.0) fl RDW Coeff of Travis (11.0-15.0) % Plt Count (150-400) K/uL MPV (7.40-12.00) fL Nucleated RBC % /100WBC Nucleated RBCs # K/uL Cord ABG pH (7.18-7.38) Cord ABG Base Excess (-10--2) Cord VBG pH (7.25-7.45) Cord VBG Base Excess (-10--2) Blood Type Antibody Screen Med Orders - Current: Current Medications Bisacodyl (Bisacodyl 10 Mg Supp) 10 mg RECTAL ONETIME PRN PRN Reason: Constipation Diphenhydramine HCl (Diphenhydramine 50 Mg/Ml Sdv) 25 mg IVPUSH Q6H PRN PRN Reason: Itching or Nausea Docusate Sodium (Docusate Sodium 100 Mg Cap) 100 mg PO BID ABISAI Last Admin: 07/17/20 08:11 Dose: 100 mg Documented by: Emollient Ointment (Lanolin 100% Cream 7 Gm Tube) 0 gm TOP ASDIRECTED PRN PRN Reason: Sore Nipples Last Admin: 07/16/20 21:05 Dose: 1 applic Documented by: Lactated Ringer's (Ringers, Lactated) 1,000 mls @ 125 mls/hr IV ASDIRECTED ABISAI Last Admin: 07/16/20 16:09 Dose: 125 mls/hr Documented by: Oxytocin/Lactated Ringer's (Pitocin In Lr 30 Units/500 Ml) 30 unit in 500 mls @ 999 mls/hr IV TITRATE ABISAI; Protocol Tranexamic Acid 1,000 mg/ (Sodium Chloride) 110 mls @ 660 mls/hr IV ONETIME PRN PRN Reason: Bleeding Ibuprofen (Ibuprofen 800 Mg Tab) 800 mg PO Q8H PRN PRN Reason: mild pain or fever Ketorolac Tromethamine (Ketorolac 30 Mg/Ml Sdv) 30 mg IVPUSH Q6H [facility] Stop: 07/17/20 13:16 Last Admin: 07/17/20 07:33 Dose: 30 mg Documented by: Methylergonovine Maleate (Methylergonovine 0.2 Mg/1 Ml Amp) 0.2 mg IM ONETIME PRN PRN Reason: Excessive Vaginal Bleeding Misoprostol (Misoprostol 200 Mcg Tab) 1,000 mcg RECTAL ONETIME PRN PRN Reason: excessive bleeding Nalbuphine HCl (Nalbuphine 10 Mg/1 Ml Vial) 5 mg IVPUSH Q3H PRN PRN Reason: Pruritis Stop: 07/17/20 11:01 Ondansetron HCl (Ondansetron 4 Mg/2 Ml Sdv) 4 mg IVPUSH Q4H PRN PRN Reason: Nausea/Vomiting Oxycodone/Acetaminophen (Acetaminophen/Oxycodone 325-5 Mg Tab) 1 tab PO Q4H PRN PRN Reason: Pain (moderate 4-6) Oxycodone/Acetaminophen (Acetaminophen/Oxycodone 325-5 Mg Tab) 2 tab PO Q4H PRN PRN Reason: Pain (moderate 4-6) Oxytocin (Oxytocin 10 Units/1 Ml Sdv) 10 unit IM ASDIRECTED PRN PRN Reason: Excessive Vaginal Bleeding Discontinued Medications Cefazolin Sodium (Cefazolin 1 Gm Vial) Confirm Administered Dose 2 gm .ROUTE .STK-MED ONE Stop: 07/16/20 10:26 Citric Acid/Sodium Citrate (Citric Acid/Sodium Citrate Solution 30 Ml Cup) 30 ml PO ONETIME ONE Stop: 07/16/20 10:40 Sodium Chloride (Normal Saline) Confirm Administered Dose 20 mls @ as directed .ROUTE .STK-MED ONE Stop: 07/16/20 10:26 Lactated Ringer's (Ringers, Lactated) 1,000 mls @ 500 mls/hr IV BOLUS [facility] Last Admin: 07/16/20 11:33 Dose: 500 mls/hr Documented by: Oxytocin/Sodium Chloride (Oxytocin 30 Unit/500 Ml-Ns) 30 unit in 500 mls @ 250 mls/hr IV TITRATE [facility] Ketorolac Tromethamine (Ketorolac 30 Mg/Ml Sdv) Confirm Administered Dose 30 mg .ROUTE .STK-MED ONE Stop: 07/16/20 10:25 Morphine Sulfate (Morphine Pf 10 Mg/10 Ml Sdv) Confirm Administered Dose 10 mg .ROUTE .STK-MED ONE Stop: 07/16/20 10:27 Octyl Cyanoacrylate (Octyl 2-Cyanoacrylate 1 Tube) Confirm Administered Dose 1 applic .ROUTE .STK-MED ONE Stop: 07/16/20 12:40 Last Admin: 07/16/20 17:38 Dose: Not Given Documented by: Ondansetron HCl (Ondansetron 4 Mg/2 Ml Sdv) Confirm Administered Dose 4 mg .ROUTE .STK-MED ONE Stop: 07/16/20 10:25 Oxytocin (Oxytocin 10 Units/1 Ml Sdv) Confirm Administered Dose 20 unit .ROUTE .STK-MED ONE Stop: 07/16/20 10:25 Phenylephrine HCl (Phenylephrine 1% 10 Mg/Ml Sdv) Confirm Administered Dose 10 mg .ROUTE .STK-MED ONE Stop: 07/16/20 10:25 Sodium Chloride (Sodium Chloride 0.9% 10 Ml Syringe) 10 ml FLUSH ASDIRECTED PRN PRN Reason: Keep Vein Open Sodium Chloride (Sodium Chloride 0.9% 2.5 Ml Syringe) 2.5 ml FLUSH ASDIRECTED PRN PRN Reason: Keep Vein Open Sodium Chloride (Sodium Chloride 0.9% 10 Ml Sdv) 10 ml IV ASDIRECTED PRN PRN Reason: IV Use - Interaction Infant Disposition, : in Room with Family Infant Interaction: Holding Infant Feeding: Breastfed Infant; Nursed Well Support Person: - Recovery Exam Fundal Tone: Firm Fundal Level: 2 Fingerbreadths Below Umbilicus Fundal Placement: Midline Lochia Amount: Scant Lochia Color: Rubra/Red Bladder Status: Indwelling Catheter in Place - Exam General: Alert Neck: Supple Lungs: Normal Respiratory Effort Cardiovascular: Murmurs GI/Abdominal Exam: Soft, No Distention, No Mass Extremities: Normal Range of Motion, Non-Tender, No Pedal Edema Skin: Warm, Dry, Intact Wound/Incisions: Dressing Dry and Intact Neurological: No New Focal Deficit Psy/Mental Status: Alert, Normal Affect, Normal Mood - Problem List & Annotations (1) delivery delivered SNOMED Code(s): 890839233 Code(s): O82 - ENCOUNTER FOR DELIVERY WITHOUT INDICATION Status: Acute Current Visit: No - Problem List Review Problem List Initiated/Reviewed/Updated: Yes - My Orders Last 24 Hours: My Active Orders 07/16/20 10:35 RPR (SYPHILIS SERO) W/ RFLX [REF] Routine 07/16/20 13:14 Acetaminophen/oxyCODONE [Percocet 325-5 MG] 1 tab PO Q4H PRN Acetaminophen/oxyCODONE [Percocet 325-5 MG] 2 tab PO Q4H PRN Ibuprofen [Motrin] 800 mg PO Q8H PRN Lanolin [Lansinoh HPA] See Dose Instructions TOP ASDIRECTED PRN Methylergonovine [Methergine] 0.2 mg IM ONETIME PRN Ondansetron [Zofran] 4 mg IVPUSH Q4H PRN Oxytocin [Pitocin] 10 unit IM ASDIRECTED PRN Tranexamic Acid [Cyklokapron] 1,000 mg Sodium Chloride 0.9% [Normal Saline] 100 ml IV ONETIME bisacodyL [Dulcolax] 10 mg RECTAL ONETIME PRN diphenhydrAMINE [Benadryl] 25 mg IVPUSH Q6H PRN miSOPROStoL [Cytotec] 1,000 mcg RECTAL ONETIME PRN Abdominal Binder [OM.PC] Routine Resuscitation Status Routine 07/16/20 13:15 Patient Status [ADT] Routine Ambulate [RC] PER UNIT ROUTINE Antiembolic Devices [RC] PER UNIT ROUTINE Communication Order [RC] PER UNIT ROUTINE Communication Order [RC] PER UNIT ROUTINE Communication Order [RC] Per Unit Routine May Shower [RC] ASDIRECTED Notify Provider Vital Signs [RC] ASDIRECTED RT Incentive Spirometry [RC] Q2HWA Vital Signs [RC] PER UNIT ROUTINE Ketorolac [Toradol] 30 mg IVPUSH Q6H Lactated Ringers [Ringers, Lactated] 1,000 ml IV ASDIRECTED Oxytocin/Lactated Ringers [Pitocin in LR 30 Units/500 ML] 30 unit in 500 ml IV TITRATE Assess Lochia [WOMSER] Per Unit Routine Assess Uterine Involution [WOMSER] Per Unit Routine Breast Pump [WOMSER] Per Unit Routine Peripheral IV Discontinue [OM.PC] Routine Sequential Compression Device [OM.PC] Per Unit Routine 07/16/20 13:16 Notify Provider Intake and Out [RC] ASDIRECTED 07/16/20 Dinner Regular Diet [DIET] 07/16/20 21:00 Docusate Sodium [Colace] 100 mg PO BID - Assessment Assessment:: POD#1 after repeat low transverse . Stable, ambulating, pain is well controlled with minimal lochia. - Plan Plan:: Continue postop care, dressing off, may shower, discussed oral pain medications.
[2020-07-17] MEDS: Ibuprofen 800 MG Tab PO PRN (21:19)
[2020-07-18] MEDS: Ibuprofen 800 MG Tab PO PRN (07:48)
--- NOTE | 2020-07-18 08:28 | PCM.PNPP ---
- General Info Date of Service: 07/18/20 Functional Status: Reports: Pain Controlled, Tolerating Diet, Ambulating, Urinating - Review of Systems General: Reports: No Symptoms HEENT: Reports: No Symptoms Pulmonary: Reports: No Symptoms Cardiovascular: Reports: No Symptoms Gastrointestinal: Reports: No Symptoms Genitourinary: Reports: No Symptoms Musculoskeletal: Reports: No Symptoms Skin: Reports: No Symptoms Neurological: Reports: No Symptoms Psychiatric: Reports: No Symptoms - General Info Date of Service: 07/18/20 - Patient Data Vital Signs - Most Recent: Last Vital Signs Temp 36.1 C 07/17/20 21:00 Pulse 89 07/17/20 21:00 Resp 16 07/17/20 21:00 BP 106/65 07/17/20 21:00 Pulse Ox 95 07/17/20 21:00 Weight - Most Recent: 95.254 kg Med Orders - Current: Current Medications Bisacodyl (Bisacodyl 10 Mg Supp) 10 mg RECTAL ONETIME PRN PRN Reason: Constipation Diphenhydramine HCl (Diphenhydramine 50 Mg/Ml Sdv) 25 mg IVPUSH Q6H PRN PRN Reason: Itching or Nausea Docusate Sodium (Docusate Sodium 100 Mg Cap) 100 mg PO BID ABISAI Last Admin: 07/17/20 21:19 Dose: 100 mg Documented by: Emollient Ointment (Lanolin 100% Cream 7 Gm Tube) 0 gm TOP ASDIRECTED PRN PRN Reason: Sore Nipples Last Admin: 07/16/20 21:05 Dose: 1 applic Documented by: Lactated Ringer's (Ringers, Lactated) 1,000 mls @ 125 mls/hr IV ASDIRECTED ABISAI Last Admin: 07/16/20 16:09 Dose: 125 mls/hr Documented by: Oxytocin/Lactated Ringer's (Pitocin In Lr 30 Units/500 Ml) 30 unit in 500 mls @ 999 mls/hr IV TITRATE ABISAI; Protocol Tranexamic Acid 1,000 mg/ (Sodium Chloride) 110 mls @ 660 mls/hr IV ONETIME PRN PRN Reason: Bleeding Ibuprofen (Ibuprofen 800 Mg Tab) 800 mg PO Q8H PRN PRN Reason: mild pain or fever Last Admin: 07/18/20 07:48 Dose: 800 mg Documented by: Methylergonovine Maleate (Methylergonovine 0.2 Mg/1 Ml Amp) 0.2 mg IM ONETIME PRN PRN Reason: Excessive Vaginal Bleeding Misoprostol (Misoprostol 200 Mcg Tab) 1,000 mcg RECTAL ONETIME PRN PRN Reason: excessive bleeding Ondansetron HCl (Ondansetron 4 Mg/2 Ml Sdv) 4 mg IVPUSH Q4H PRN PRN Reason: Nausea/Vomiting Oxycodone/Acetaminophen (Acetaminophen/Oxycodone 325-5 Mg Tab) 1 tab PO Q4H PRN PRN Reason: Pain (moderate 4-6) Oxycodone/Acetaminophen (Acetaminophen/Oxycodone 325-5 Mg Tab) 2 tab PO Q4H PRN PRN Reason: Pain (moderate 4-6) Oxytocin (Oxytocin 10 Units/1 Ml Sdv) 10 unit IM ASDIRECTED PRN PRN Reason: Excessive Vaginal Bleeding Discontinued Medications Cefazolin Sodium (Cefazolin 1 Gm Vial) Confirm Administered Dose 2 gm .ROUTE .STK-MED ONE Stop: 07/16/20 10:26 Citric Acid/Sodium Citrate (Citric Acid/Sodium Citrate Solution 30 Ml Cup) 30 ml PO ONETIME ONE Stop: 07/16/20 10:40 Sodium Chloride (Normal Saline) Confirm Administered Dose 20 mls @ as directed .ROUTE .STK-MED ONE Stop: 07/16/20 10:26 Lactated Ringer's (Ringers, Lactated) 1,000 mls @ 500 mls/hr IV BOLUS [facility] Last Admin: 07/16/20 11:33 Dose: 500 mls/hr Documented by: Oxytocin/Sodium Chloride (Oxytocin 30 Unit/500 Ml-Ns) 30 unit in 500 mls @ 250 mls/hr IV TITRATE [facility] Ketorolac Tromethamine (Ketorolac 30 Mg/Ml Sdv) Confirm Administered Dose 30 mg .ROUTE .STK-MED ONE Stop: 07/16/20 10:25 Ketorolac Tromethamine (Ketorolac 30 Mg/Ml Sdv) 30 mg IVPUSH Q6H [facility] Stop: 07/17/20 13:16 Last Admin: 07/17/20 14:34 Dose: 30 mg Documented by: Morphine Sulfate (Morphine Pf 10 Mg/10 Ml Sdv) Confirm Administered Dose 10 mg .ROUTE .STK-MED ONE Stop: 07/16/20 10:27 Nalbuphine HCl (Nalbuphine 10 Mg/1 Ml Vial) 5 mg IVPUSH Q3H PRN PRN Reason: Pruritis Stop: 07/17/20 11:01 Octyl Cyanoacrylate (Octyl 2-Cyanoacrylate 1 Tube) Confirm Administered Dose 1 applic .ROUTE .STK-MED ONE Stop: 07/16/20 12:40 Last Admin: 07/16/20 17:38 Dose: Not Given Documented by: Ondansetron HCl (Ondansetron 4 Mg/2 Ml Sdv) Confirm Administered Dose 4 mg .ROUTE .STK-MED ONE Stop: 07/16/20 10:25 Oxytocin (Oxytocin 10 Units/1 Ml Sdv) Confirm Administered Dose 20 unit .ROUTE .STK-MED ONE Stop: 07/16/20 10:25 Phenylephrine HCl (Phenylephrine 1% 10 Mg/Ml Sdv) Confirm Administered Dose 10 mg .ROUTE .STK-MED ONE Stop: 07/16/20 10:25 Sodium Chloride (Sodium Chloride 0.9% 10 Ml Syringe) 10 ml FLUSH ASDIRECTED PRN PRN Reason: Keep Vein Open Sodium Chloride (Sodium Chloride 0.9% 2.5 Ml Syringe) 2.5 ml FLUSH ASDIRECTED PRN PRN Reason: Keep Vein Open Sodium Chloride (Sodium Chloride 0.9% 10 Ml Sdv) 10 ml IV ASDIRECTED PRN PRN Reason: IV Use - Interaction Disposition, : in Room with Family Infant Interaction: Holding Infant Feeding: Breastfed Infant; Nursed Well Support Person: - Recovery Exam Fundal Tone: Firm Fundal Level: 2 Fingerbreadths Below Umbilicus Fundal Placement: Midline Lochia Amount: Scant Lochia Color: Rubra/Red Perineum Description: Intact, Minimal Bruising/Swelling Episiotomy/Laceration: None Bladder Status: Nonpalpable, Voiding Urinary Elimination: Voided - Exam General: Alert, Oriented Neck: Supple Lungs: Normal Respiratory Effort Cardiovascular: Regular Rhythm GI/Abdominal Exam: Soft, Non-Tender, No Distention Extremities: Normal Inspection, Non-Tender, No Pedal Edema Skin: Warm, Dry, Intact Wound/Incisions: Healing Well Neurological: No New Focal Deficit Psy/Mental Status: Alert, Normal Affect, Normal Mood - Problem List & Annotations (1) delivery delivered SNOMED Code(s): 242399773 Code(s): O82 - ENCOUNTER FOR DELIVERY WITHOUT INDICATION Status: Acute Current Visit: No - Problem List Review Problem List Initiated/Reviewed/Updated: Yes - My Orders Last 24 Hours: My Active Orders 07/18/20 07:59 Ready for Discharge [RC] PER UNIT ROUTINE - Assessment Assessment:: POD#2 after repeat low transverse . Stable, ambulating, pain is well controlled with minimal lochia. - Plan Plan:: Discharge precautions reviewed.
[2020-07-18] MEDS: Docusate Sodium 100 MG Cap PO SCH (09:14)
== END 2020-07-18 13:00 | disposition home or self-care (01) | DRG 788 ==
LOC: MW.OBCHECK 10:20 → MW.OB 10:29 → OBSVTOIN 10:39 → MW.OBCHECK 11:25 → MW.OB 18:00
PROVIDERS: ADMIT Obstetrics & Gynecology; ATTEND Obstetrics & Gynecology
PROC: 10D00Z1 Extraction of Products of Conception, Low, Open Approach (ICD-10-PCS; principal; 2020-07-16)
DX: O34.211 Maternal care for low transverse scar from previous cesarean delivery (principal); Z3A.39 39 weeks gestation of pregnancy; Z37.0 Single live birth; O69.81X0 Labor and delivery complicated by cord around neck, without compression, not applicable or unspecified
CPT/HCPCS: 36415; 51702; 59025; 82803; 85014; 85018; 85027; 86592; 86850; 86900; 86901; A9270-GY; J0690; J1885; J2270; J2370; J2405; J2590; J7120

== ENCOUNTER 2022-04-28 05:13 | Inpatient (IN) | payer OTHER ==
[2022-04-28] MEDS: Lactated Ringers 1,000 ML IV SCH ×5 (06:00→19:43)
[2022-04-28] MEDS ORDERED: ceFAZolin 2 GM in Premix Bag 1 BAG IV ONE (06:32)
[2022-04-28] MEDS ORDERED: Sodium Chloride 0.9% 2.5 ML Syringe FLUSH PRN (06:32)
[2022-04-28] MEDS ORDERED: Sodium Chloride 0.9% 10 ML Syringe FLUSH PRN (06:32)
[2022-04-28] MEDS ORDERED: Citric Acid/Sodium Citrate Solution 30 ML Cup PO ONE (06:32)
[2022-04-28] MEDS ORDERED: Sodium Chloride 0.9% 20 ML SDV IV PRN (06:32)
[2022-04-28] MEDS ORDERED: Oxytocin/0.9 % Sodium Chloride 30 UNIT/500 ML BAG IV SCH ×2 (06:45→09:15)
[2022-04-28] MEDS ORDERED: Ropivacaine 0.5% 5 MG/ML 30 ML SDV ONE (07:29)
[2022-04-28] MEDS ORDERED: Bupivacaine 0.5% 10 ML SDV ONE (07:29)
[2022-04-28] MEDS ORDERED: ceFAZolin 1 GM Vial ONE (07:29)
[2022-04-28] MEDS ORDERED: Ondansetron 4 MG/2 ML SDV ONE (07:29)
[2022-04-28] MEDS ORDERED: ePHEDrine 50 MG/ML SDV ONE ×2 (07:29→08:32)
[2022-04-28] MEDS ORDERED: Water For Injection, Sterile 40 ML ONE (07:29)
[2022-04-28] MEDS ORDERED: Dexamethasone 4 MG/ML 5 ML MDV ONE (07:29)
[2022-04-28] MEDS ORDERED: Oxytocin 10 Units/1 ML SDV ONE (07:29)
[2022-04-28] MEDS ORDERED: Phenylephrine 1% 10 MG/ML SDV ONE (07:29)
[2022-04-28] MEDS ORDERED: Dexmedetomidine 200 MCG/2 ML SDV ONE (07:29)
[2022-04-28] MEDS ORDERED: Morphine PF 10 MG/10 ML SDV ONE (07:30)
[2022-04-28] MEDS ORDERED: Tranexamic Acid 1,000 MG in Sodium Chloride 0.9% 100 ML IV PRN (09:10)
[2022-04-28] MEDS ORDERED: diphenhydrAMINE 50 MG/ML SDV IVPUSH PRN ×2 (09:10→09:31)
[2022-04-28] MEDS ORDERED: Acetaminophen/oxyCODONE 325-5 MG Tab PO PRN (09:10)
[2022-04-28] MEDS ORDERED: Lanolin 100% Cream 7 GM Tube TOP PRN (09:10)
[2022-04-28] MEDS ORDERED: Bisacodyl 10 MG Supp RECTAL PRN (09:10)
[2022-04-28] MEDS ORDERED: Oxytocin 10 Units/1 ML SDV IM PRN (09:10)
[2022-04-28] MEDS ORDERED: Ondansetron 4 MG/2 ML SDV IVPUSH PRN ×2 (09:10→09:31)
[2022-04-28] MEDS ORDERED: Misoprostol 200 MCG Tab RECTAL PRN (09:10)
[2022-04-28] MEDS ORDERED: Ketorolac 30 MG/ML SDV IVPUSH SCH (09:15)
[2022-04-28] MEDS ORDERED: Nalbuphine HCl 10 MG/ 1ML Amp IVPUSH PRN (09:30)
[2022-04-28] MEDS ORDERED: ePHEDrine 50 MG/ML SDV IVPUSH PRN (09:31)
[2022-04-28] MEDS ORDERED: Naloxone 0.4 MG/ML SDV IVPUSH PRN (09:31)
[2022-04-28] MEDS: Ketorolac 30 MG/ML SDV IVPUSH SCH ×3 (11:34→23:28)
[2022-04-28] MEDS: Phenylephrine HCl In 0.9% NaCl 1 MG/10 ML Vial IVPUSH SCH ×2 (12:16→12:17)
[2022-04-28] MEDS: Docusate Sodium 100 MG Cap PO SCH (21:00)
[2022-04-29] MEDS: Ketorolac 30 MG/ML SDV IVPUSH SCH ×2 (05:27→11:35)
[2022-04-29] MEDS: Docusate Sodium 100 MG Cap PO SCH ×2 (09:35→20:43)
[2022-04-29] MEDS: Acetaminophen/oxyCODONE 325-5 MG Tab PO PRN ×2 (17:38→22:12)
[2022-04-29] MEDS: Ibuprofen 800 MG Tab PO PRN (20:43)
[2022-04-30] MEDS: Acetaminophen/oxyCODONE 325-5 MG Tab PO PRN ×2 (03:50→09:59)
[2022-04-30] MEDS: Ibuprofen 800 MG Tab PO PRN (07:49)
== END 2022-04-30 11:35 | disposition home or self-care (01) | DRG 788 ==
LOC: MW.OB 05:13
PROVIDERS: ADMIT Obstetrics & Gynecology; ATTEND Obstetrics & Gynecology
PROC: 10D00Z1 Extraction of Products of Conception, Low, Open Approach (ICD-10-PCS; principal; 2022-04-28)
DX: O34.211 Maternal care for low transverse scar from previous cesarean delivery (principal); Z37.0 Single live birth; O99.52 Diseases of the respiratory system complicating childbirth; J06.9 Acute upper respiratory infection, unspecified; O99.214 Obesity complicating childbirth
CPT/HCPCS: 36415; 59025; 82803; 85014; 85018; 86592; A9270-GY; J0690; J1100; J1885; J2274; J2370; J2405; J2590; J2795; J3490; J7120

== ENCOUNTER 2024-04-25 04:58 | Inpatient (IN) | payer BC, OTHER ==
[2024-04-25] MEDS ORDERED: Sodium Chloride 0.9% 20 ML SDV IV PRN (05:10)
[2024-04-25] MEDS ORDERED: Sodium Chloride 0.9% 2.5 ML Syringe FLUSH PRN (05:10)
[2024-04-25] MEDS ORDERED: Sodium Chloride 0.9% 10 ML Syringe FLUSH PRN (05:10)
[2024-04-25] MEDS ORDERED: Oxytocin/0.9 % Sodium Chloride 30 UNIT/500 ML BAG IV SCH (05:15)
[2024-04-25] MEDS: Lactated Ringers 1,000 ML IV SCH (06:00)
[2024-04-25 06:49] LABS: HEMOGLOBIN 10.9 g/dL (12.0-16.0); MEAN CORPUSCULAR HEMOGLOBIN 26.5 pg (28.0-32.0); MEAN CORPUSCULAR VOLUME 80.3 fL (83.0-99.0); MEAN PLATELET VOLUME 8.8 fL (9.4-12.3); PLATELET COUNT,PLT 210 K/uL (150-400); RED BLOOD CELL COUNT 4.11 M/uL (4.10-5.30)
[2024-04-25] MEDS ORDERED: Bupivacaine 0.25% 30 ML SDV ONE (07:23)
[2024-04-25] MEDS ORDERED: Ondansetron 4 MG/2 ML SDV ONE (07:23)
[2024-04-25] MEDS ORDERED: Morphine PF 10 MG/10 ML SDV ONE (07:23)
[2024-04-25] MEDS ORDERED: Ketorolac 30 MG/ML SDV ONE (07:23)
[2024-04-25] MEDS ORDERED: fentaNYL 100 MCG/2 ML SDV ONE (07:23)
[2024-04-25] MEDS ORDERED: Ropivacaine 0.5% 5 MG/ML 30 ML SDV ONE (07:23)
[2024-04-25] MEDS ORDERED: ceFAZolin 1 GM Vial ONE (07:23)
[2024-04-25] MEDS ORDERED: Oxytocin 10 Units/1 ML SDV ONE (07:23)
[2024-04-25] MEDS ORDERED: EPINEPHrine 1 MG/1 ML Amp ONE (07:23)
[2024-04-25] MEDS ORDERED: Ondansetron 4 MG/2 ML SDV IVPUSH PRN ×2 (07:45)
[2024-04-25] MEDS ORDERED: Metoclopramide 10 MG/2 ML SDV IVPUSH PRN (07:45)
[2024-04-25] MEDS ORDERED: diphenhydrAMINE 50 MG/ML SDV IVPUSH PRN ×2 (07:45→09:11)
[2024-04-25] MEDS ORDERED: Morphine 2 MG/ML SYRINGE IVPUSH PRN (07:45)
[2024-04-25] MEDS ORDERED: fentaNYL 50 MCG/ML SDV IVPUSH PRN (07:45)
[2024-04-25] MEDS ORDERED: ePHEDrine 50 MG/ML SDV IM PRN (07:45)
[2024-04-25] MEDS ORDERED: Naloxone 0.4 MG/ML SDV IVPUSH PRN ×2 (07:45→09:11)
[2024-04-25] MEDS ORDERED: Albuterol 0.083% 2.5 MG/3 ML Neb Soln NEB PRN (07:45)
[2024-04-25] MEDS ORDERED: Phenylephrine HCl In 0.9% NaCl 1 MG/10 ML Syringe IVPUSH PRN (07:45)
[2024-04-25] MEDS ORDERED: Nalbuphine 10 MG/1 ML Vial IVPUSH PRN (07:45)
[2024-04-25] MEDS ORDERED: fentaNYL 100 MCG/2 ML SDV IVPUSH PRN (07:45)
[2024-04-25] MEDS ORDERED: Acetaminophen/oxyCODONE 325-5 MG Tab PO PRN (07:45)
[2024-04-25] MEDS ORDERED: HYDROmorphone 1 MG/ML Syringe IVPUSH PRN (07:45)
[2024-04-25] MEDS ORDERED: Phenylephrine HCl In 0.9% NaCl 1 MG/10 ML Syringe ONE ×3 (07:50→08:28)
[2024-04-25] MEDS: Citric Acid/Sodium Citrate Solution 30 ML Cup PO ONE (08:27)
[2024-04-25] MEDS: ceFAZolin 2 GM in Sodium Chloride 0.9% 50 ML IV ONE (08:27)
[2024-04-25] MEDS ORDERED: Oxytocin 10 Units/1 ML SDV IM PRN (09:11)
[2024-04-25] MEDS ORDERED: oxyCODONE 5 MG Tab PO PRN (09:11)
[2024-04-25] MEDS ORDERED: Lanolin 100% Cream 7 GM Tube TOP PRN (09:11)
[2024-04-25] MEDS ORDERED: Misoprostol 200 MCG Tab RECTAL PRN (09:11)
[2024-04-25] MEDS ORDERED: Methylergonovine 0.2 MG/1 ML Amp IM PRN (09:11)
[2024-04-25] MEDS ORDERED: Bisacodyl 10 MG Supp RECTAL PRN (09:11)
[2024-04-25] MEDS ORDERED: Lactated Ringers 1,000 ML IV SCH (09:15)
[2024-04-25 09:20] LABS: PH,UMBILICAL ARTERIAL 7.229 (7.18-7.38); PH,UMBILICAL VENOUS 7.297 (7.25-7.45)
[2024-04-25] MEDS ORDERED: Acetaminophen 1,000 MG in Premix Bag 1 BAG IV SCH (10:00)
[2024-04-25] MEDS: Ondansetron 4 MG/2 ML SDV IVPUSH PRN (10:56)
[2024-04-25] MEDS: Acetaminophen 1,000 MG in Premix Bag 1 BAG IV PRN (10:57)
[2024-04-25] MEDS: Ketorolac 30 MG/ML SDV IVPUSH SCH (13:30)
[2024-04-25] MEDS: Acetaminophen 1,000 MG in Premix Bag 1 BAG IV SCH (17:52)
[2024-04-26] MEDS: Docusate Sodium 100 MG Cap PO SCH (05:22)
[2024-04-26 06:40] LABS: HEMATOCRIT 28.6 % (37.0-47.0); HEMOGLOBIN 9.2 g/dL (12.0-16.0)
[2024-04-26] MEDS: Acetaminophen 500 MG Tab PO PRN (12:54)
[2024-04-26] MEDS: Ibuprofen 800 MG Tab PO PRN (18:31)
== END 2024-04-27 12:55 | disposition home or self-care (01) | DRG 540 ==
LOC: MW.OB 04:58
PROVIDERS: ADMIT Obstetrics & Gynecology; ATTEND Obstetrics & Gynecology
PROC: 10D00Z1 Extraction of Products of Conception, Low, Open Approach (ICD-10-PCS; principal; 2024-04-25 08:00)
DX: O34.211 Maternal care for low transverse scar from previous cesarean delivery (principal); N85.8 Other specified noninflammatory disorders of uterus; Z3A.39 39 weeks gestation of pregnancy; Z37.0 Single live birth
CPT/HCPCS: 36415; 59025; 82803; 85014; 85018; 85027; 86592; 86850; 86900; 86901; A9270-GY; J0131; J0171; J0665; J0690; J1100; J1885; J2274; J2371; J2405; J2590; J2795; J3010; J7120